=== PATIENT | male | born 1950 | race Caucasian/White ===

== ENCOUNTER 2020-06-01 19:09 | Inpatient (IN) | payer MEDICARE, OTHER ==
[2020-06-01 20:27] LABS: Absolute Neutrophil Ct (ANC) 2.55 (1.4-6.9); BASOPHIL % 0.9 % (0.0-0.4); Basophil (Absolute #) 0.03 (0-0.4); Eosinophil % 0.3 % (0.00-5.0); Eosinophil (Absolute #) 0.01 (0-0.5); Hematocrit 25.9 % (42-50); Hemoglobin 8.7 gm/dl (12.5-18.0); Lymphocyte (Absolute #) 0.59 (1.0-4.6); Lymphocytes % 17.2 % (24.0-44.0); Mean Cell Volume 109.3 fl (78-100); Mean Corpuscular Hemoglobin 36.7 pg (26-32); Mean Corpuscular Hgb Concent. 33.6 g/dl (32-36); Mean Platelet Volume 9.7 fl (7.5-11.0); Monocyte (Absolute #) 0.26 (0.0-1.3); Monocytes % 7.6 % (0.0-12.0); Platelet Count 123 K/mm3 (150-450); Red Blood Count 2.37 M/mm3 (4.1-5.6); Red Cell Distribution Width 15.2 % (11.5-14.0); White Blood Count 3.4 K/mm3 (4.0-10.5)
--- NOTE | 2020-06-01 20:29 | ERPHSYRPT ---
- History of Present Illness Time Seen by Provider: 06/01/20 19:40 Source: patient Exam Limitations: no limitations Patient Subjective Stated Complaint: . Triage Nursing Assessment: . Physician History: Patient is a 69-year-old male presents to our ED for evaluation of syncope. Patient states he was stepping out of his truck became very dizzy and fell. However patient states he caught himself before landing on the ground. Upon arrival to our ED patient was observed to have a unsteady gait. He appears pale. Patient states he feels generally weak. No focal or lateralizing symptoms. The syncopal episode was not associated with any chest pain or shortness of breath. Symptoms are mild to moderate in intensity. No specific worsening or improving factors. Patient voices no other complaints or concerns at this time. Timing/Duration: today Severity: moderate Modifying Factors: Improves With: nothing Associated Symptoms: denies symptoms, other (dizziness) Allergies/Adverse Reactions: No Known Drug Allergies Allergy (Unverified 06/01/20 19:39) Home Medications: Acetaminophen with Codeine [Acetaminophen-Cod #3 Tablet] 1 tab PO BID 06/01/20 [History] Budesonide/Formoterol Fumarate [Symbicort 160-4.5 Mcg Inhaler] 2 puffs IH DAILY 06/01/20 [History] Cetirizine HCl [Zyrtec] 10 mg PO DAILY 06/01/20 [History] Fluticasone Propionate 1 gm IH DAILY 06/01/20 [History] Mecobalamin [B12 Active] 1,000 mcg PO DAILY 06/01/20 [History] Omeprazole 20 mg PO DAILY 06/01/20 [History] Hx Tetanus, Diphtheria Vaccination/Date Given: No Hx Influenza Vaccination/Date Given: No Hx Pneumococcal Vaccination/Date Given: No Immunizations Up to Date: Yes Travel Risk - International Travel Have you traveled outside of the country in past 3 weeks: No - Coronavirus Screening Are you exhibiting any of the following symptoms?: No Close contact with a COVID-19 positive Pt in past 14-21 Days: No - Vaccine Status Have you recieved a Covid-19 vaccination: No - Review of Systems Constitutional: No Symptoms, No Fever, No Chills Eyes: No Symptoms Ears, Nose, & Throat: No Symptoms Respiratory: No Symptoms, No Cough, No Dyspnea Cardiac: No Symptoms, No Chest Pain, No Edema, No Syncope Abdominal/Gastrointestinal: No Symptoms, No Abdominal Pain, No Nausea, No Vomiting, No Diarrhea Genitourinary Symptoms: No Symptoms, No Dysuria Musculoskeletal: No Symptoms, No Back Pain, No Neck Pain Skin: No Symptoms, No Rash Neurological: No Symptoms, No Dizziness, No Focal Weakness, No Sensory Changes Psychological: No Symptoms Endocrine: No Symptoms Hematologic/Lymphatic: No Symptoms Immunological/Allergic: No Symptoms All Other Systems: Reviewed and Negative - Past Medical History Pertinent Past Medical History: Yes Neurological History: No Pertinent History ENT History: No Pertinent History Cardiac History: No Pertinent History Respiratory History: COPD Endocrine Medical History: No Pertinent History Musculoskeletal History: Arthritis GI Medical History: GERD History: No Pertinent History Psycho-Social History: Anxiety, Depression Male Reproductive Disorders: No Pertinent History - Past Surgical History Past Surgical History: Yes Neuro Surgical History: No Pertinent History Cardiac: No Pertinent History Respiratory: No Pertinent History Gastrointestinal: No Pertinent History Genitourinary: No Pertinent History Musculoskeletal: No Pertinent History Male Surgical History: No Pertinent History - Social History Smoking Status: Current every day smoker How long have you smoked: 50 years Exposure to second hand smoke: Yes Drug Use: none Patient Lives Alone: No - Nursing Vital Signs Nursing Vital Signs: Initial Vital Signs Temperature 97.8 F 06/01/20 19:32 Pulse Rate 75 06/01/20 19:32 Respiratory Rate 16 06/01/20 19:32 Blood Pressure 141/84 06/01/20 19:32 O2 Sat by Pulse Oximetry 95 06/01/20 19:32 Pain Scale Pain Intensity 3 - Physical Exam General Appearance: no apparent distress, alert, cachetic, thin, other (Patient appears somewhat pale. He is observed to have resting tremors.) Eye Exam: PERRL/EOMI, eyes nml inspection Ears, Nose, Throat Exam: normal ENT inspection, TMs normal, pharynx normal, moist mucous membranes Neck Exam: normal inspection, non-tender, supple, full range of motion Respiratory Exam: normal breath sounds, lungs clear, No respiratory distress Cardiovascular Exam: regular rate/rhythm, normal heart sounds, normal peripheral pulses Gastrointestinal/Abdomen Exam: soft, normal bowel sounds, No tenderness, No mass Back Exam: normal inspection, normal range of motion, No CVA tenderness, No vertebral tenderness Extremity Exam: normal inspection, normal range of motion, pelvis stable Neurologic Exam: alert, oriented x 3, cooperative, normal mood/affect, nml cerebellar function, nml station & gait, sensation nml, No motor deficits Skin Exam: normal color, warm, dry, No rash Lymphatic Exam: No adenopathy SpO2 Interpretation: normal SpO2: 95 O2 Delivery: Room Air - Course Nursing assessment & vital signs reviewed: Yes EKG Interpreted by Me: RATE (69), Sinus Rhythm, NORMAL AXIS, NORMAL INTERVALS - Radiology Exams Chest X-ray Interpretation: Interpreted by me (Hyperinflated lungs, no consolidation or infiltrate. Osteopenia. Intact bony thorax. No more cardiac silhouette.) - CT Exams Head CT Interpretation: Tele-radiologist Report (Cranial hemorrhage or mass-effect. Moderate diffuse white matter disease likely reflecting chronic microvascular ischemic changes.) Ordered Tests: Active Orders 24 hr Category Date Time Status Bedrest ROUTINE Activity 06/01/20 23:20 Active Roofing [employer]or STAT Care 06/01/20 19:28 Completed Code Status Order ROUTINE Care 06/01/20 23:20 Active EKG-ER Only STAT Care 06/01/20 19:28 Completed IV Care Q6H Care 06/01/20 23:20 Active IV Insertion STAT Care 06/01/20 19:28 Completed Pulse Oximetry (ED) STAT Care 06/01/20 19:28 Completed Suzanne Lancaster ROUTINE Care 06/01/20 23:20 Active Weight,Daily 0600 Care 06/01/20 23:20 Active Heart-Healthy Diet Diet 06/01/20 Breakfast Active CHEST 1 VIEW (PORTABLE) Stat Exams 06/01/20 19:28 Taken HEAD WITHOUT CONTRAST [CT] Stat Exams 06/01/20 21:57 Taken CBC AM.LAB Lab 06/02/20 04:00 Ordered CBC W DIFF Stat Lab 06/01/20 20:20 Completed CMP AM.LAB Lab 06/02/20 04:00 Ordered CMP Stat Lab 06/01/20 20:20 Completed CULTURE,URINE Stat Lab 06/01/20 21:33 Received NT PRO BNP Stat Lab 06/01/20 20:20 Completed PROTIME WITH INR Stat Lab 06/01/20 20:20 Completed PTT Stat Lab 06/01/20 20:20 Completed TROPONIN Q3H Lab 06/01/20 20:20 Completed TROPONIN Q3H Lab 06/01/20 21:25 Completed TROPONIN Q3H Lab 06/02/20 01:30 Ordered TROPONIN Q3H Lab 06/02/20 04:30 Ordered TROPONIN Q3H Lab 06/02/20 07:30 Ordered UA W/RFX UR CULTURE Stat Lab 06/01/20 21:32 Completed Urine Triage Profile Stat Lab 06/01/20 21:33 Completed Pulse Oximetry CONTINUOUS RT 06/01/20 23:20 Active Transfer Order Routine Transfer 06/01/20 Completed Transfer Order Routine Transfer 06/01/20 Ordered Medication Summary Generic Name Dose Route Start Last Admin Trade Name Freq PRN Reason Stop Dose Admin Albuterol Sulfate 2.5 mg 06/02/20 03:00 Proventil 2.5 Mg/3 Ml Neb IH 07/02/20 02:59 Q4HRT EFRA Discontinued Medications Generic Name Dose Route Start Last Admin Trade Name Freq PRN Reason Stop Dose Admin Sodium Chloride 1,000 mls @ 100 mls/hr 06/01/20 21:45 06/01/20 22:07 Sodium Chloride 0.9% 1000 Ml IV 07/01/20 21:44 100 mls/hr .Q10H EFRA Administration Sodium Chloride Confirm 06/01/20 22:04 Sodium Chloride 0.9% 1000 Ml Administered 06/01/20 22:05 Dose 1,000 mls @ ud .ROUTE .STK-MED ONE Lab/Rad Data: Laboratory Result Diagrams 06/01/20 20:20 06/01/20 20:20 Laboratory Results 06/01/20 06/01/20 06/01/20 Range/Units 22:08 21:33 21:32 WBC (4.0-10.5) K/mm3 RBC (4.1-5.6) M/mm3 Hgb (12.5-18.0) gm/dl Hct (42-50) % MCV (78-100) fl MCH (26-32) pg MCHC (32-36) g/dl RDW (11.5-14.0) % Plt Count (150-450) K/mm3 MPV (7.5-11.0) fl Gran % (36.0-66.0) % Eos # (Auto) (0-0.5) Absolute Lymphs (auto) (1.0-4.6) Absolute Monos (auto) (0.0-1.3) Lymphocytes % (24.0-44.0) % Monocytes % (0.0-12.0) % Eosinophils % (0.00-5.0) % Basophils % (0.0-0.4) % Absolute Granulocytes (1.4-6.9) Basophils # (0-0.4) PT (8.83-12.87) SECONDS INR (0.8-3.0) APTT (24.1-36.1) SECONDS Sodium (137-145) mmol/L Potassium (3.5-5.1) mmol/L Chloride (98-107) mmol/L Carbon Dioxide (22-30) mmol/L Anion Gap (5-15) MEQ/L BUN (9-20) mg/dL Creatinine (0.66-1.25) mg/dL Estimated GFR ML/MIN Glucose (74-106) mg/dL Calcium (8.4-10.2) mg/dL Total Bilirubin (0.2-1.3) mg/dL AST (17-59) U/L ALT (0-50) U/L Alkaline Phosphatase (38-126) U/L Troponin I (0.000-0.034) ng/mL NT-Pro-B Natriuret Pep (0-900) pg/mL Serum Total Protein (6.3-8.2) g/dL Albumin (3.5-5.0) g/dL Urine Color BYRON (YELLOW) Urine Appearance CLEAR (CLEAR) Urine pH 5.0 (5-6) Ur Specific [place] 1.014 (1.005-1.025) Urine Protein NEGATIVE (Negative) Urine Ketones NEGATIVE (NEGATIVE) Urine Blood NEGATIVE (0-5) Alejandro/ul Urine Nitrite NEGATIVE (NEGATIVE) Urine Bilirubin NEGATIVE (NEGATIVE) Urine Urobilinogen 2 (0-1) mg/dL Ur Leukocyte Esterase NEGATIVE (NEGATIVE) Urine WBC (Auto) NONE (0-5) /HPF Urine RBC (Auto) NONE (0-2) /HPF U Hyaline Cast (Auto) 0-2 (0-2) /LPF U Epithel Cells (Auto) NONE (FEW) /HPF Urine Bacteria (Auto) NONE (NEGATIVE) /HPF Urine Mucus (Auto) SLIGHT (NEGATIVE) /HPF Urine Culture Reflexed ORDERED SEPARATELY (NO) Urine Glucose NEGATIVE (NEGATIVE) mg/dL Urine Opiates Level POSITIVE (NEGATIVE) Ur Methadone NEGATIVE (NEGATIVE) Urine Barbiturates NEGATIVE (NEGATIVE) Ur Phencyclidine (PCP) NEGATIVE (NEGATIVE) Urine Amphetamine NEGATIVE (NEGATIVE) U Benzodiazepine Level NEGATIVE (NEGATIVE) Urine Cocaine NEGATIVE (NEGATIVE) Urine Marijuana (THC) NEGATIVE (NEGATIVE) Influenza Type A Ag NEGATIVE (NEGATIVE) Influenza Type B Ag NEGATIVE (NEGATIVE) RSV (PCR) NEGATIVE (Negative) SARS-CoV-2 (PCR) NEGATIVE (NEGATIVE) Slides for Path Review ABO Group Rh Factor Antibody Screen (NEGATIVE) 06/01/20 06/01/20 06/01/20 Range/Units 21:25 21:25 20:20 WBC (4.0-10.5) K/mm3 RBC (4.1-5.6) M/mm3 Hgb (12.5-18.0) gm/dl Hct (42-50) % MCV (78-100) fl MCH (26-32) pg MCHC (32-36) g/dl RDW (11.5-14.0) % Plt Count (150-450) K/mm3 MPV (7.5-11.0) fl Gran % (36.0-66.0) % Eos # (Auto) (0-0.5) Absolute Lymphs (auto) (1.0-4.6) Absolute Monos (auto) (0.0-1.3) Lymphocytes % (24.0-44.0) % Monocytes % (0.0-12.0) % Eosinophils % (0.00-5.0) % Basophils % (0.0-0.4) % Absolute Granulocytes (1.4-6.9) Basophils # (0-0.4) PT 12.4 (8.83-12.87) SECONDS INR 1.10 (0.8-3.0) APTT 28.0 (24.1-36.1) SECONDS Sodium (137-145) mmol/L Potassium (3.5-5.1) mmol/L Chloride (98-107) mmol/L Carbon Dioxide (22-30) mmol/L Anion Gap (5-15) MEQ/L BUN (9-20) mg/dL Creatinine (0.66-1.25) mg/dL Estimated GFR ML/MIN Glucose (74-106) mg/dL Calcium (8.4-10.2) mg/dL Total Bilirubin (0.2-1.3) mg/dL AST (17-59) U/L ALT (0-50) U/L Alkaline Phosphatase (38-126) U/L Troponin I 0.028 (0.000-0.034) ng/mL NT-Pro-B Natriuret Pep (0-900) pg/mL Serum Total Protein (6.3-8.2) g/dL Albumin (3.5-5.0) g/dL Urine Color (YELLOW) Urine Appearance (CLEAR) Urine pH (5-6) Ur Specific [place] (1.005-1.025) Urine Protein (Negative) Urine Ketones (NEGATIVE) Urine Blood (0-5) Alejandro/ul Urine Nitrite (NEGATIVE) Urine Bilirubin (NEGATIVE) Urine Urobilinogen (0-1) mg/dL Ur Leukocyte Esterase (NEGATIVE) Urine WBC (Auto) (0-5) /HPF Urine RBC (Auto) (0-2) /HPF U Hyaline Cast (Auto) (0-2) /LPF U Epithel Cells (Auto) (FEW) /HPF Urine Bacteria (Auto) (NEGATIVE) /HPF Urine Mucus (Auto) (NEGATIVE) /HPF Urine Culture Reflexed (NO) Urine Glucose (NEGATIVE) mg/dL Urine Opiates Level (NEGATIVE) Ur Methadone (NEGATIVE) Urine Barbiturates (NEGATIVE) Ur Phencyclidine (PCP) (NEGATIVE) Urine Amphetamine (NEGATIVE) U Benzodiazepine Level (NEGATIVE) Urine Cocaine (NEGATIVE) Urine Marijuana (THC) (NEGATIVE) Influenza Type A Ag (NEGATIVE) Influenza Type B Ag (NEGATIVE) RSV (PCR) (Negative) SARS-CoV-2 (PCR) (NEGATIVE) Slides for Path Review ABO Group O Rh Factor POSITIVE Antibody Screen NEGATIVE (NEGATIVE) 06/01/20 06/01/20 06/01/20 Range/Units 20:20 20:20 20:20 WBC 3.4 L (4.0-10.5) K/mm3 RBC 2.37 L (4.1-5.6) M/mm3 Hgb 8.7 L (12.5-18.0) gm/dl Hct 25.9 L (42-50) % MCV 109.3 H (78-100) fl MCH 36.7 H (26-32) pg MCHC 33.6 (32-36) g/dl RDW 15.2 H (11.5-14.0) % Plt Count 123 L (150-450) K/mm3 MPV 9.7 (7.5-11.0) fl Gran % 74.0 H (36.0-66.0) % Eos # (Auto) 0.01 (0-0.5) Absolute Lymphs (auto) 0.59 L (1.0-4.6) Absolute Monos (auto) 0.26 (0.0-1.3) Lymphocytes % 17.2 L (24.0-44.0) % Monocytes % 7.6 (0.0-12.0) % Eosinophils % 0.3 (0.00-5.0) % Basophils % 0.9 (0.0-0.4) % Absolute Granulocytes 2.55 (1.4-6.9) Basophils # 0.03 (0-0.4) PT (8.83-12.87) SECONDS INR (0.8-3.0) APTT (24.1-36.1) SECONDS Sodium 127 L (137-145) mmol/L Potassium 4.6 (3.5-5.1) mmol/L Chloride 97 L (98-107) mmol/L Carbon Dioxide 15 L* (22-30) mmol/L Anion Gap 20.2 H (5-15) MEQ/L BUN 11 (9-20) mg/dL Creatinine 0.76 (0.66-1.25) mg/dL Estimated GFR > 60.0 ML/MIN Glucose 76 (74-106) mg/dL Calcium 9.5 (8.4-10.2) mg/dL Total Bilirubin 1.90 H (0.2-1.3) mg/dL AST 33 (17-59) U/L ALT 22 (0-50) U/L Alkaline Phosphatase 71 (38-126) U/L Troponin I 0.031 (0.000-0.034) ng/mL NT-Pro-B Natriuret Pep 1230 H (0-900) pg/mL Serum Total Protein 7.2 (6.3-8.2) g/dL Albumin 3.7 (3.5-5.0) g/dL Urine Color (YELLOW) Urine Appearance (CLEAR) Urine pH (5-6) Ur Specific [place] (1.005-1.025) Urine Protein (Negative) Urine Ketones (NEGATIVE) Urine Blood (0-5) Alejandro/ul Urine Nitrite (NEGATIVE) Urine Bilirubin (NEGATIVE) Urine Urobilinogen (0-1) mg/dL Ur Leukocyte Esterase (NEGATIVE) Urine WBC (Auto) (0-5) /HPF Urine RBC (Auto) (0-2) /HPF U Hyaline Cast (Auto) (0-2) /LPF U Epithel Cells (Auto) (FEW) /HPF Urine Bacteria (Auto) (NEGATIVE) /HPF Urine Mucus (Auto) (NEGATIVE) /HPF Urine Culture Reflexed (NO) Urine Glucose (NEGATIVE) mg/dL Urine Opiates Level (NEGATIVE) Ur Methadone (NEGATIVE) Urine Barbiturates (NEGATIVE) Ur Phencyclidine (PCP) (NEGATIVE) Urine Amphetamine (NEGATIVE) U Benzodiazepine Level (NEGATIVE) Urine Cocaine (NEGATIVE) Urine Marijuana (THC) (NEGATIVE) Influenza Type A Ag (NEGATIVE) Influenza Type B Ag (NEGATIVE) RSV (PCR) (Negative) SARS-CoV-2 (PCR) (NEGATIVE) Slides for Path Review YES ABO Group Rh Factor Antibody Screen (NEGATIVE) - Progress Progress: improved Progress Note: Patient reassessed. No active dizziness. Labs reveal leukopenia. Patient has a megaloblastic anemia at 8.7. Thrombocytopenia at 123. Hyponatremia at 127. IV fluids infusing. BNP elevated at 1230. No pulmonary congestion. Findings may be related to chronic alcohol use. Patient admits to using alcohol daily. Patient is pale. No active bleeding source observed. Patient will be admitted to the floor. Banana bag ordered to be administered on the floor. Covid test negative. [facility] we did notify the [facility] of the need for admission. [facility] approved patient stay in our hospital. The phone call was made Roberto Lemon RN. 06/01/20 22:56 06/01/20 23:32 Discussed with : Christian Will see patient in: hospital (observation) Counseled pt/family regarding: lab results, diagnosis, need for follow-up, rad results - Departure Departure Disposition: Observation Clinical Impression: Syncope, Leukopenia, Megaloblastic anemia, Dizziness, Thrombocytopenia, Hyponat remia, High anion gap metabolic acidosis, Elevated brain natriuretic peptide (BNP) level, Metabolic acidosis Condition: Stable Critical Care Time: No Referrals: DOCTOR,NO FAMILY [Primary Care Provider] - Additional Instructions: Discharge/Care Plan MORRIS AGUILLON was seen on 06/01/20 in the Emergency Room. The patient was counseled regarding Diagnosis,Lab results, Imaging studies, need for follow up and when to return to the Emergency Room. Prescriptions given: Discharge Note I have spoken with the patient and/or caregivers. I have explained the patient's condition, diagnosis and treatment plan based on the information available to me at this time. I have answered the patient's and/or caregiver's questions and addressed any concerns. The patient and/or caregivers have as good understanding of the patient's diagnosis, condition and treatment plan as can be expected at this point. The vital signs have been stable. The patient's condition is stable and appropriate for discharge from the emergency department. The patient will pursue further outpatient evaluation with the primary care physician or other designated or consulting physician as outlined in the discha rge instructions. The patient and/or caregivers are agreeable to this plan of care and follow-up instructions have been explained in detail. The patient and/or caregivers have received these instruction. The patient/and or caregivers are aware that any significant change in condition or worsening of symptoms should prompt an immediate return to this or the closest emergency department or call 911.
[2020-06-01 20:38] LABS: INR 1.1 (0.8-3.0); PROTIME 12.4 SECONDS (8.83-12.87)
[2020-06-01 20:51] LABS: ALBUMIN 3.7 g/dL (3.5-5.0); ALKALINE PHOSPHATASE 71 U/L (38-126); ANION GAP 20.2 MEQ/L (5-15); BLOOD UREA NITROGEN 11 mg/dL (9-20); CHLORIDE 97 mmol/L (98-107); Calcium 9.5 mg/dL (8.4-10.2); Creatinine 1 0.76 mg/dL (0.66-1.25); EST GLOMERULAR FILTRATION RATE > 60.0 ML/MIN; Glucose 76 mg/dL (74-106); NT PRO BNP 1230 pg/mL (0-900); Potassium 4.6 mmol/L (3.5-5.1); SGOT/AST 33 U/L (17-59); SGPT/ALT 22 U/L (0-50); SODIUM 127 mmol/L (137-145); Total Protein 7.2 g/dL (6.3-8.2)
[2020-06-01 20:52] LABS: Carbon Dioxide 15 mmol/L (22-30)
[2020-06-01 20:55] LABS: Slide Review 1 YES
[2020-06-01] MEDS ORDERED: Sodium Chloride 0.9% 1000 ML 1,000 ML IV SCH (21:45)
[2020-06-01 21:48] LABS: Appearance CLEAR (CLEAR); Bilirubin NEGATIVE (NEGATIVE); Blood NEGATIVE Ery/ul (0-5); Glucose NEGATIVE (NEGATIVE); Hyaline Casts 0-2 /LPF (0-2); Ketones NEGATIVE (NEGATIVE); Leukocyte Esterase NEGATIVE (NEGATIVE); Mucus SLIGHT /HPF (NEGATIVE); Nitrite NEGATIVE (NEGATIVE); Protein,Urine Dip NEGATIVE (Negative); Specific Gravity 1.014 (1.005-1.025); Urobilinogen 2 mg/dL (0-1)
[2020-06-01 22:01] LABS: Amphetamine,Urine NEGATIVE (NEGATIVE); Barbiturate,Urine NEGATIVE (NEGATIVE); Benzodiazepine,Urine NEGATIVE (NEGATIVE); Cocaine,Urine NEGATIVE (NEGATIVE); Methadone,Urine NEGATIVE (NEGATIVE); Opiate,Urine POSITIVE (NEGATIVE); PCP,Urine NEGATIVE (NEGATIVE); THC,Urine NEGATIVE (NEGATIVE)
[2020-06-01] MEDS ORDERED: Sodium Chloride 0.9% 1000 ML 1,000 ML ONE (22:04)
[2020-06-01 22:21] LABS: ABO TYPING O; Antibody Screen NEGATIVE (NEGATIVE); RH TYPING POSITIVE
[2020-06-01 22:51] LABS: INFLUENZA A NEGATIVE (NEGATIVE); INFLUENZA B NEGATIVE (NEGATIVE); RESPIRATORY SYNCTIAL VIRUS NEGATIVE (Negative)
[2020-06-01] MEDS: VENTOLIN COMMON CANISTER IH SCH (23:51)
[2020-06-02] MEDS ORDERED: PROVENTIL 2.5 MG/3 ML NEB IH SCH (03:00)
[2020-06-02 04:59] LABS: Hematocrit 21.5 % (42-50); Hemoglobin 7.2 gm/dl (12.5-18.0); Mean Cell Volume 109.1 fl (78-100); Mean Corpuscular Hemoglobin 36.5 pg (26-32); Mean Corpuscular Hgb Concent. 33.5 g/dl (32-36); Platelet Count 94 K/mm3 (150-450); Red Blood Count 1.97 M/mm3 (4.1-5.6); Red Cell Distribution Width 14.9 % (11.5-14.0)
[2020-06-02 05:07] LABS: White Blood Count 1.7 K/mm3 (4.0-10.5)
[2020-06-02 05:13] LABS: ALBUMIN 2.7 g/dL (3.5-5.0); ALKALINE PHOSPHATASE 56 U/L (38-126); ANION GAP 11.6 MEQ/L (5-15); BLOOD UREA NITROGEN 9 mg/dL (9-20); CHLORIDE 99 mmol/L (98-107); Calcium 8.5 mg/dL (8.4-10.2); Carbon Dioxide 20 mmol/L (22-30); Creatinine 1 0.68 mg/dL (0.66-1.25); EST GLOMERULAR FILTRATION RATE > 60.0 ML/MIN; Glucose 77 mg/dL (74-106); SGOT/AST 29 U/L (17-59); SGPT/ALT 16 U/L (0-50); SODIUM 127 mmol/L (137-145); Total Protein 5.7 g/dL (6.3-8.2)
[2020-06-02] MEDS: Advair Hfa 230/21 Mcg COMMON CANISTER IH SCH ×2 (07:15→19:53)
[2020-06-02] MEDS: VENTOLIN COMMON CANISTER IH SCH ×3 (07:15→19:52)
[2020-06-02] MEDS ORDERED: Vitamins For Infusion 10 ML INJECTION*** 10 ML, THIAMINE 200 MG/2 ML*** 100 MG, FOLNATE... IV SCH ×4 (07:30)
--- NOTE | 2020-06-02 08:47 | XRAY ---
Indication: Short of breath. Comparison: None Portable chest hyperinflated with minimal scattered fibrosis/scarring bilaterally. No focal infiltrate, consolidation, or large effusion. Heart is not enlarged. Descending aorta is tortuous. A few small right paratracheal calcified nodes. Bony thorax intact with mild osteopenia and old left 3-6 rib fractures. Impression: Nonacute chest with chronic features.
--- NOTE | 2020-06-02 08:49 | XRAY ---
Indication: Dizziness. Status post fall. Multiple contiguous axial images obtained through the head without contrast. Comparison: None Age-appropriate global atrophy and moderate periventricular degenerative micro-ischemia bilaterally. No acute intracranial hemorrhage, abnormal extra-axial fluid collection, or mass effect. Fourth ventricle is midline without hydrocephalus. Bony calvarium intact. Minimal mucosal thickening left sphenoid sinus. Remaining paranasal sinuses and mastoid air cells are clear. Impression: Nonacute senile brain with incidental minimal paranasal sinus disease. Comment: Preliminary interpretation was made by [facility]. No critical discrepancy.
--- NOTE | 2020-06-02 08:56 | HP ---
CHIEF COMPLAINT: Falling down. HISTORY OF PRESENT ILLNESS: The patient is a 69 year-old chronic alcoholic who reports that he had about fallen out of his truck today. He was brought in by a neighbor who reports that he drinks from sun up to sun down. We talked to the patient about his alcohol consumption who said "I have a tolerance that you just wouldn't believe". The patient had been seen in the last few years by the [facility]. In fact, he has seen Dr. Bowling in [place] but otherwise has just been doing tele-visits. He reported that he "Is not going to take their damn medication anymore". He did have prostate cancer previously and had treatment for this approximately two years ago. PAST MEDICAL/SURGICAL HISTORY: Otherwise significant for 50 pack year history of smoking. He has gastroesophageal reflux disease, anxiety, depression. MEDICATIONS: He currently denies taking any home medications but has a home medication list that currently includes Tylenol with Codeine, Symbicort, Zyrtec, fluticasone, B12, omeprazole. The patient was started on a banana bag to get him started with multivitamins and thiamin. ALLERGIES: NKDA. PHYSICAL EXAMINATION: The patient's vital signs on admission showed his temperature 97.8F, pulse 75, respiratory rate 16 and blood pressure 141/84. O2 saturation 95%. HEENT: Normocephalic, atraumatic. Pupils equal round reactive to light. Extraocular movements intact. Oropharynx is dry. NECK: Supple without lymphadenopathy, thyromegaly or JVD. CHEST: Clear to auscultation. HEART: Regular rate and rhythm. No murmurs, rubs or gallops are heard. ABDOMEN: Soft, somewhat scaphoid. No palpable masses were felt. EXTREMITIES: Without cyanosis, clubbing or edema. NEUROLOGIC: The patient is currently alert and oriented x3 but no focal deficits were noted. We did not get him up to walk him around as he was thought to be too weak at this time. We will have tele-neurology consult performed as well as physical therapy evaluation for ambulation. LAB DATA AND TESTS: His laboratory studies had shown him to be negative on his urine drug screen for any other reasons for intoxication. He had a white count of 3,400, hemoglobin 8.7 and PLT count of 123,000 considered pancytopenia likely secondary to his alcohol. His glucose was 76, BUN 11, creatinine 0.76. His CO2 was low at 15. His sodium was low at 127. His Pro-BNP was somewhat elevated at 1230. His troponin was 0.031. He had CT scan of the brain which was negative for mass effect or bleeding. 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 We plan to get a tele-neurology consult, likely MRI, B12 and folate level as well as RPR and any other labs that tele-neurology would suggest as well. He is receiving IV fluids and MDI with Anabell was discussed above. He will get a physical therapy evaluation for ambulation. He has been placed protocol for monitoring for delirium tremens (DT) syndrome as well.
[2020-06-02] MEDS: Vitamin B-12 500 MCG PO SCH (09:14)
[2020-06-02] MEDS: Ativan 2 MG/1 ML VIAL IV PRN ×2 (09:14→23:40)
[2020-06-02] MEDS: Protonix 40MG Tablet PO SCH (09:14)
--- NOTE | 2020-06-02 09:16 | XRAY ---
Indication: Multiple syncopal episodes. Encephalopathy. Sagittal, coronal, and axial MRI brain was performed without contrast using T1, T2, FLAIR, diffusion, and ADC sequences. Comparison: None Age-appropriate global atrophy and moderate periventricular degenerative micro-ischemia signal bilaterally. No acute intracranial hemorrhage, abnormal extra-axial fluid collection, or mass effect. Diffusion images are negative for restricted signal. Fourth ventricle is midline without hydrocephalus. 7/8 cranial nerve complex bilaterally symmetric. Normal flow-void signal within the major intracerebral circulation. Normal appearing craniocervical junction and sella turcica. Mild left ethmoid sinus mucosal thickening. Impression: 1. Aging brain including atrophy and degenerative micro-ischemia within normal limits for patient's age. 2. No acute intracranial abnormalities or evidence for evolving large vessel territorial stroke. 3. Mild paranasal sinus disease.
[2020-06-02] MEDS ORDERED: NON-FORMULARY ITEM (Mecobalamin [B12 Active] 1,000 MCG) PO SCH (10:00)
[2020-06-02] MEDS ORDERED: NON-FORMULARY ITEM (Omeprazole [Omeprazole] 20 MG) PO SCH (10:00)
[2020-06-02] MEDS: Sodium Chloride 0.9% 1000 ML 1,000 ML IV SCH ×2 (15:54→23:18)
[2020-06-03 05:36] LABS: Hematocrit 20.2 % (42-50); Mean Cell Volume 113.5 fl (78-100); Mean Corpuscular Hemoglobin 36.5 pg (26-32); Mean Corpuscular Hgb Concent. 32.2 g/dl (32-36); Mean Platelet Volume 9.5 fl (7.5-11.0); Platelet Count 95 K/mm3 (150-450); Red Cell Distribution Width 15.7 % (11.5-14.0)
[2020-06-03 06:01] LABS: ALBUMIN 2.3 g/dL (3.5-5.0); ALKALINE PHOSPHATASE 59 U/L (38-126); ANION GAP 7.7 MEQ/L (5-15); BLOOD UREA NITROGEN 8 mg/dL (9-20); CHLORIDE 107 mmol/L (98-107); Carbon Dioxide 20 mmol/L (22-30); Creatinine 1 0.66 mg/dL (0.66-1.25); EST GLOMERULAR FILTRATION RATE > 60.0 ML/MIN; Glucose 98 mg/dL (74-106); Potassium 3.4 mmol/L (3.5-5.1); SGOT/AST 24 U/L (17-59); SGPT/ALT 14 U/L (0-50); SODIUM 132 mmol/L (137-145); Total Protein 5.1 g/dL (6.3-8.2)
[2020-06-03 06:10] LABS: White Blood Count 1.6 K/mm3 (4.0-10.5)
[2020-06-03 06:11] LABS: Hemoglobin 6.5 gm/dl (12.5-18.0); Red Blood Count 1.78 M/mm3 (4.1-5.6)
[2020-06-03] MEDS: VENTOLIN COMMON CANISTER IH SCH ×2 (07:05→19:45)
[2020-06-03] MEDS: Advair Hfa 230/21 Mcg COMMON CANISTER IH SCH ×2 (07:05→19:45)
[2020-06-03] MEDS: Sodium Chloride 0.9% 1000 ML 1,000 ML IV SCH ×2 (08:06→16:17)
[2020-06-03] MEDS: Vitamin B-12 500 MCG PO SCH (10:39)
[2020-06-03] MEDS: Protonix 40MG Tablet PO SCH (10:39)
--- NOTE | 2020-06-03 10:41 | PCM.NOTE ---
Date and Time: 06/03/20 [facility] Subjective Assessment: patient is doing okay. Still complaining of some weakness. Denies any other cold rule symptoms. Patient hemoglobin is 6.5. We will consider transfusing 1 unit packed red blood cells today - Review of Systems Constitutional: No Fever, No Chills Eyes: No Symptoms Ears, Nose, & Throat: No Symptoms Respiratory: No Cough, No Short Of Breath Cardiac: No Chest Pain, No Edema, No Syncope Abdominal/Gastrointestinal: No Abdominal Pain, No Nausea, No Vomiting, No Diarrhea Genitourinary Symptoms: No Dysuria Musculoskeletal: No Back Pain, No Neck Pain Skin: No Rash Neurological: No Dizziness, No Focal Weakness, No Sensory Changes Psychological: No Symptoms Endocrine: No Symptoms Hematologic/Lymphatic: No Symptoms Immunological/Allergic: No Symptoms Objective Exam General Appearance: no apparent distress, alert Neurologic Exam: alert, oriented x 3, cooperative, normal mood/affect, nml cerebellar function, sensation nml, No motor deficits Skin Exam: normal color, warm, dry Eye Exam: PERRL, EOMI, eyes nml inspection Ears, Nose, Throat Exam: normal ENT inspection, pharynx normal, moist mucous membranes Neck Exam: normal inspection, non-tender, supple, full range of motion Respiratory Exam: normal breath sounds, lungs clear, No respiratory distress Cardiovascular Exam: regular rate/rhythm, normal heart sounds Gastrointestinal/Abdomen Exam: soft, No tenderness, No mass Extremity Exam: normal inspection, normal range of motion Back Exam: normal inspection, normal range of motion, No CVA tenderness, No vertebral tenderness Male Genitalia Exam: deferred Rectal Exam: deferred OBJECTIVE DATA Vital Signs: Vital Signs - 24 hr Temp Pulse Resp BP Pulse Ox 06/03/20 07:19 70 16 111/59 94 L 06/03/20 07:06 67 16 97 06/03/20 04:05 98.1 F 63 16 101/55 96 06/03/20 04:00 18 06/03/20 00:00 20 06/02/20 23:39 98.0 F 78 20 132/66 96 06/02/20 20:00 15 06/02/20 19:53 68 15 96 06/02/20 19:14 98.2 F 70 20 130/60 97 06/02/20 16:00 98.5 F 65 18 112/69 93 L 06/02/20 15:57 16 06/02/20 15:20 65 16 96 06/02/20 12:00 98.1 F 63 18 108/56 94 L 06/02/20 11:29 63 18 100 Pain Assessment - Last Documented Pain Intensity 0 Intake and Output: Intake & Output 05/31/20 06/01/20 06/02/20 06/03/20 11:59 11:59 11:59 11:59 Intake Total 761 4294 Output Total 1340 Balance 761 1584 Weight 58.4 kg 55.5 kg Lab Results: Lab Results-Last 24 Hours 06/03/20 06/03/20 Range/Units 05:25 05:25 WBC 1.6 L* (4.0-10.5) K/mm3 RBC 1.78 L* (4.1-5.6) M/mm3 Hgb 6.5 L* (12.5-18.0) gm/dl Hct 20.2 L (42-50) % MCV 113.5 H (78-100) fl MCH 36.5 H (26-32) pg MCHC 32.2 (32-36) g/dl RDW 15.7 H (11.5-14.0) % Plt Count 95 L (150-450) K/mm3 MPV 9.5 (7.5-11.0) fl Sodium 132 L (137-145) mmol/L Potassium 3.4 L (3.5-5.1) mmol/L Chloride 107 (98-107) mmol/L Carbon Dioxide 20 L (22-30) mmol/L Anion Gap 7.7 (5-15) MEQ/L BUN 8 L (9-20) mg/dL Creatinine 0.66 (0.66-1.25) mg/dL Estimated GFR > 60.0 ML/MIN Glucose 98 (74-106) mg/dL Calcium 8.0 L (8.4-10.2) mg/dL Total Bilirubin 1.40 H (0.2-1.3) mg/dL AST 24 (17-59) U/L ALT 14 (0-50) U/L Alkaline Phosphatase 59 (38-126) U/L Serum Total Protein 5.1 L (6.3-8.2) g/dL Albumin 2.3 L (3.5-5.0) g/dL Radiology Exams: Radiology Procedures Category Date Time Status CHEST 1 VIEW (PORTABLE) Stat Exams 06/01/20 19:28 Completed HEAD WITHOUT CONTRAST [CT] Stat Exams 06/01/20 21:57 Completed MRI BRAIN W/O CONTRAST [MRI] Routine Exams 06/02/20 07:36 Completed Assessment/Plan (1) Alcoholic encephalopathy Current Visit: Yes Status: Acute Assessment & Plan: stable Code(s): G31.2 - DEGENERATION OF NERVOUS SYSTEM DUE TO ALCOHOL; F10.20 - ALCOHOL DEPENDENCE, UNCOMPLICATED (2) Megaloblastic anemia Current Visit: Yes Status: Acute Assessment & Plan: will consider 1 unit of PRBC Code(s): D53.1 - OTHER MEGALOBLASTIC ANEMIAS, NOT ELSEWHERE CLASSIFIED (3) Thrombocytopenia Current Visit: Yes Status: Acute
[2020-06-03 12:34] LABS: Eosinophil 4 % (0.00-3.0); Lymphocytes 28 % (24-44); Monocyte 4 % (0.0-12.0); Neutrophils 64 % (36.-66.); Total Cells Counted 100
[2020-06-03 12:36] LABS: Platelet Estimate NORMAL (NORMAL)
[2020-06-03 14:59] LABS: ABO TYPING O; Antibody Screen NEGATIVE (NEGATIVE); RH TYPING POSITIVE
[2020-06-03 15:01] LABS: CROSS MATCH (PRBC) COMPATIBLE (COMPATIBLE)
[2020-06-03] MEDS: Vitamins For Infusion 10 ML INJECTION*** 10 ML, THIAMINE 200 MG/2 ML*** 100 MG, FOLNATE... IV SCH ×4 (19:30)
[2020-06-03 21:30] LABS: Hematocrit 25.5 % (42-50)
[2020-06-03 21:32] LABS: Hemoglobin 8.7 gm/dl (12.5-18.0)
[2020-06-03] MEDS: Ativan 2 MG/1 ML VIAL IV PRN (22:22)
[2020-06-04] MEDS: VENTOLIN COMMON CANISTER IH PRN ×2 (03:40→23:34)
[2020-06-04] MEDS: VENTOLIN COMMON CANISTER IH SCH ×3 (07:32→21:58)
[2020-06-04] MEDS: Advair Hfa 230/21 Mcg COMMON CANISTER IH SCH ×2 (07:32→19:35)
[2020-06-04] MEDS: Vitamin B-12 500 MCG PO SCH (11:39)
[2020-06-04] MEDS: Protonix 40MG Tablet PO SCH (11:39)
[2020-06-04] MEDS: Vitamins For Infusion 10 ML INJECTION*** 10 ML, THIAMINE 200 MG/2 ML*** 100 MG, FOLNATE... IV SCH ×4 (13:56)
[2020-06-04] MEDS ORDERED: Sodium Chloride 0.9% 500 ML 500 ML IV SCH (19:30)
[2020-06-04] MEDS ORDERED: Sodium Chloride 0.45% 500ML 500 ML IV ONE (21:34)
[2020-06-04] MEDS: Sodium Chloride 0.9% 1000 ML 1,000 ML IV SCH (21:56)
[2020-06-04] MEDS: Ativan 2 MG/1 ML VIAL IV PRN (23:11)
[2020-06-05 05:32] LABS: Absolute Neutrophil Ct (ANC) 1.22 (1.4-6.9); BASOPHIL % 0.5 % (0.0-0.4); Basophil (Absolute #) 0.01 (0-0.4); Eosinophil % 1.1 % (0.00-5.0); Eosinophil (Absolute #) 0.02 (0-0.5); Hematocrit 26.1 % (42-50); Hemoglobin 8.6 gm/dl (12.5-18.0); Lymphocyte (Absolute #) 0.45 (1.0-4.6); Lymphocytes % 23.7 % (24.0-44.0); Mean Cell Volume 106.5 fl (78-100); Mean Corpuscular Hemoglobin 35.1 pg (26-32); Mean Platelet Volume 9.9 fl (7.5-11.0); Monocytes % 10.5 % (0.0-12.0); Neutrophil % 64.2 % (36.0-66.0); Platelet Count 103 K/mm3 (150-450); Red Blood Count 2.45 M/mm3 (4.1-5.6); Red Cell Distribution Width 19.8 % (11.5-14.0)
[2020-06-05 05:43] LABS: White Blood Count 1.9 K/mm3 (4.0-10.5)
[2020-06-05 05:46] LABS: ALBUMIN 2.4 g/dL (3.5-5.0); ALKALINE PHOSPHATASE 59 U/L (38-126); ANION GAP 8.1 MEQ/L (5-15); BLOOD UREA NITROGEN 8 mg/dL (9-20); CHLORIDE 104 mmol/L (98-107); Calcium 8.1 mg/dL (8.4-10.2); Carbon Dioxide 22 mmol/L (22-30); Creatinine 1 0.53 mg/dL (0.66-1.25); EST GLOMERULAR FILTRATION RATE > 60.0 ML/MIN; Glucose 99 mg/dL (74-106); SGOT/AST 23 U/L (17-59); SGPT/ALT 14 U/L (0-50); SODIUM 131 mmol/L (137-145); Total Protein 5.2 g/dL (6.3-8.2)
[2020-06-05 07:41] LABS: Slide Review 1 YES
[2020-06-05] MEDS: Advair Hfa 230/21 Mcg COMMON CANISTER IH SCH ×2 (07:42→19:52)
[2020-06-05] MEDS: VENTOLIN COMMON CANISTER IH SCH ×2 (07:43→19:52)
[2020-06-05] MEDS: Vitamin B-12 500 MCG PO SCH (10:07)
[2020-06-05] MEDS: Protonix 40MG Tablet PO SCH (10:08)
[2020-06-05] MEDS: Ativan 2 MG/1 ML VIAL IV PRN (21:47)
[2020-06-06 07:46] VITALS: BP 149/74; PULSE 61; O2SAT 93
[2020-06-06] MEDS: Vitamin B-12 500 MCG PO SCH (09:41)
[2020-06-06] MEDS: Protonix 40MG Tablet PO SCH (09:41)
--- NOTE | 2020-06-06 09:53 | DS ---
DISCHARGE DIAGNOSES: 1) ALCOHOLISM. 2) ACUTE NEUROLOGIC DEFICITS ON CHRONIC. HISTORY: The patient is a 69 year-old white male patient who reports that he has fallen several times. He was noted to fall out of his truck by a neighbor who brought him in to the hospital. The neighbor reports the patient drinks from sun up to sun down. The patient only admits to five drinks a day. He is asked by stopping drinking and he reports he will not stop his alcohol intake. HOSPITAL COURSE: The patient is brought into the hospital where he was managed with IV fluids and close monitoring for alcohol withdrawal syndrome which he did not have any evidence of during his stay. The patient had tele-neurology evaluation performed which recommended doing evaluations including MRI of the brain and several labs which all were essentially returned back okay. The patient was given banana bag including multivitamins with thiamine to help out with the potential for alcohol withdrawal syndrome. The patient had recommendation of EMG and nerve conduction study (NCS) as outpatient which cannot be done at our facility due to lack of equipment. The patient's hospital course otherwise was essentially uneventful with no signs or symptoms of alcohol withdrawal. He did have occasions where he was confused and was confabulating at times. The patient had evaluation by physical therapy which was significant for the patient's inability to walk without assistance. He was therefore felt to need rehab and was discharged from our facility to [facility] for further evaluation and management. The patient otherwise is in the [place] system and reports that he does not wish to go back to the [place] system presently. Particularly we know that there have been no beds available at the [facility] for physical therapy at this time. The patient will be discharged on only multivitamins. He is on no medications when he came into the hospital and will be on none otherwise upon his discharge home. The patient specifically has had no alcohol during his five day stay here and had no symptoms of alcohol withdrawal syndrome.
== END 2020-06-06 10:57 | DRG 897 ==
LOC: ED 19:09 → MED SURG 23:27 → OBSVTOIN 06-02 08:00
PROVIDERS: ADMIT Family Medicine; ATTEND Family Medicine
DX: F10.20 Alcohol dependence, uncomplicated (principal); R55 Syncope and collapse; R29.818 Other symptoms and signs involving the nervous system; Z79.899 Other long term (current) drug therapy; J44.9 Chronic obstructive pulmonary disease, unspecified; W19.XXXA Unspecified fall, initial encounter; Z85.46 Personal history of malignant neoplasm of prostate; R53.1 Weakness; G31.2 Degeneration of nervous system due to alcohol; D53.1 Other megaloblastic anemias, not elsewhere classified; D69.6 Thrombocytopenia, unspecified; R29.6 Repeated falls
CPT/HCPCS: 0241U; 36000; 36415; 36430; 70450; 70551; 71045; 80053; 80307; 81001; 82607; 83880; 84484; 85014; 85018; 85025; 85027; 85610; 85730; 86592; 86850; 86900; 86901; 86922; 87086; 93005; 93041; 93268; 94640; 94667; 94760; 94762; 99285; G0378; J2060; P9016; Q3014; A9270-GY